=== PATIENT | female | born 1985 | race Caucasian/White ===

== ENCOUNTER 2016-07-25 11:14 | Emergency (ER) | payer SELFPAY ==
--- NOTE | 2016-07-25 11:31 | CPEKG ---
Heart Rate: 67 RR Interval: 896 P-R Interval: 144 QRSD Interval: 82 QT Interval: 404 QTC Interval: 427 P [place]: 47 QRS [place]: 5 T Wave [place]: 49 EKG Severity - NORMAL ECG - EKG Impression: SINUS RHYTHM Electronically Signed By: Kirby Arzate 26-Jul-2016 12:10:15
[2016-07-25 11:42] LABS: % IMMATURE GRANULYOCYTES 0.1 % (0.0-1.1); ABSOLUTE IMMATURE GRANULOCYTES 0.01 10^3/uL (0.00-0.10); ADD DIFF? NO; ADD MORPH? NO; ADD SCAN? NO; ATYPICAL LYMPHOCYTE FLAG 30 (0-99); FRAGMENT RBC FLAG 0 (0-99); HEMATOCRIT 44.3 % (38.0-47.0); HEMOGLOBIN 14.9 g/dL (12.6-16.3); LEFT SHIFT FLG 0 (0-99); LIPEMIA HEMOLYSIS FLAG 80 (0-99); MEAN CELL HEMOGLOBIN 28.3 pg (27.9-34.1); MEAN CELL HEMOGLOBIN CONCENTR. 33.6 g/dL (32.4-36.7); MEAN CELL VOLUME 84.1 fL (81.5-99.8); MEAN PLATELET VOLUME 10.3 fL (8.7-11.7); PLATELET CLUMPS FLAG 0 (0-99); PLATELET COUNT 272 10^3/uL (150-400); RED BLOOD CELL COUNT 5.27 10^6/uL (4.18-5.33); RED CELL DISTRIBUTION WIDTH 13.1 % (11.5-15.2)
[2016-07-25 11:47] LABS: ANION GAP 13 mEq/L (8-16); CALCIUM 9.8 mg/dL (8.5-10.4); CARBON DIOXIDE 24 mEq/l (22-31); CHLORIDE 105 mEq/L (97-110); CREATININE 0.7 mg/dL (0.6-1.0); GLOMERULAR FILTRATION RATE > 60; GLUCOSE 72 mg/dL (70-100); POTASSIUM 4.2 mEq/L (3.5-5.2); SODIUM 142 mEq/L (134-144)
--- NOTE | 2016-07-25 11:48 | EDPHY ---
H & P Time Seen by Provider: 07/25/16 11:20 HPI/ROS: CHIEF COMPLAINT: syncope, "black tarry stools" HISTORY OF PRESENT ILLNESS: 31-year-old female presents to the emergency department by ambulance complaining multiple syncopal episodes today. The patient has a history of liver cancer and has had black tarry stools since January when she was diagnosed with liver cancer. She has no metastasis. She is homeless and from [place]. She states that she has been noncompliant with her medications. She has gone through chemotherapy. She states that she was on hospice in [place]. She came to [place] to stay with her aunt, however those plans fell through and now the patient is currently homeless. She states today she has had multiple syncopal episodes. She has chronic pain and is without her medications including Dilaudid. She denies vomiting. Denies . REVIEW OF SYSTEMS: Constitutional: No fever, no chills. Eyes: No double or blurry vision. ENT: No sore throat. Respiratory: No cough, no shortness of breath. Cardiac: No chest pain. Gastrointestinal: Chronic abdominal pain. "Tarry stools" No vomiting, no diarrhea. Genitourinary: No dysuria. Musculoskeletal: No neck or back pain. Skin: No rashes. Neurological: No headache. Past Medical/Surgical History: Substance abuse, cirrhosis, hepatitis-C, diagnosed with primary liver cancer with metastasis January 2016, chronic pain Social History: Homeless from [place] Physical Exam: General Appearance: Alert, no distress. Appears well. Vital signs are stable. Eyes: Pupils equal and round. Extraocular motions are all intact. ENT: Mouth: Mucous membranes moist. Respiratory: No wheezing, rhonchi, or rales, lungs are clear to auscultation. Cardiovascular: Regular rate and rhythm. Gastrointestinal: Abdomen is soft and nontender, no masses, no rebound or guarding, bowel sounds normal. Rectal exam: Performed with nurserena, at bedside. Normal sphincter tone. Normal colored stool. Neurological: Alert and oriented x 3, cranial nerves II through XII grossly intact Skin: Multiple areas of ecchymosis to her upper extremities. There is old scarring and some scabbing noted. No signs of cellulitis, abscess or infection. Warm and dry, no rashes. Musculoskeletal: Nontender to palpate along the cervical, thoracic or lumbar spine. Neck is supple. Extremities: Full range of motion and no peripheral edema. Psychiatric: Patient is oriented X 3, there is no agitation. Constitutional: Initial Vital Signs Temperature (C) 36.8 C 07/25/16 11:39 Heart Rate 78 07/25/16 11:39 Respiratory Rate 16 07/25/16 11:39 Blood Pressure 149/98 H 07/25/16 11:39 O2 Sat (%) 96 07/25/16 11:39 O2 Delivery Mode Room Air Allergies/Adverse Reactions: ketorolac [From Toradol] Allergy (Verified 07/25/16 11:45) meperidine [From Demerol] Allergy (Verified 07/25/16 11:46) ondansetron [From Zofran (as hydrochloride)] Allergy (Verified 07/25/16 11:46) Medical Decision Making ED Course/Re-evaluation: 31-year-old female presents after having multiple syncopal episodes. The patient was placed on a residential real estate agent and had no ectopy. She had normal sinus rhythm throughout her entire stay in the emergency department. Laboratory studies including CBC, chemistry and troponin were all within normal limits. Patient's vital signs remained stable. Rectal exam was performed which revealed normal colored stool and guaiac negative stool. I do not think this patient needs CT imaging of the abdomen and pelvis. I do not think she needs admission to the hospital. She is requesting resources. She thinks that she will likely stay in the [place] area. She was given information by the rn case mgr who also talked with the patient. The patient did tell the nurse that she has continued to use heroin and does not want her to know. Differential Diagnosis: Syncope including but not limited to vasovagal syncope, arrhythmia, dehydration , and blood loss. - Data Points Laboratory Results: Laboratory Results 07/25/16 11:21 07/25/16 11:21 07/25/16 07/25/16 07/25/16 11:30 11:21 11:21 WBC RBC Hgb Hct MCV MCH MCHC RDW Plt Count MPV Neut % (Auto) Lymph % (Auto) [place] % (Auto) Eos % (Auto) Baso % (Auto) Nucleat RBC Rel Count Absolute Neuts (auto) Absolute Lymphs (auto) Absolute Monos (auto) Absolute Eos (auto) Absolute Basos (auto) Absolute Nucleated RBC Immature Gran % Immature Gran # Sodium Potassium Chloride Carbon Dioxide Anion Gap BUN Creatinine Estimated GFR Glucose Calcium Troponin I < 0.012 ng/mL ng/mL (0-0.034) Beta HCG, Qual NEGATIVE Stool Occult Bld Scrn NEGATIVE (NEGATIVE) 07/25/16 07/25/16 11:21 11:21 WBC 7.06 10^3/uL 10^3/uL (3.80-9.50) RBC 5.27 10^6/uL 10^6/uL (4.18-5.33) Hgb 14.9 g/dL g/dL (12.6-16.3) Hct 44.3 % % (38.0-47.0) MCV 84.1 fL fL (81.5-99.8) MCH 28.3 pg pg (27.9-34.1) MCHC 33.6 g/dL g/dL (32.4-36.7) RDW 13.1 % % (11.5-15.2) Plt Count 272 10^3/uL 10^3/uL (150-400) MPV 10.3 fL fL (8.7-11.7) Neut % (Auto) 53.9 % % (39.3-74.2) Lymph % (Auto) 34.4 % % (15.0-45.0) [place] % (Auto) 8.4 % % (4.5-13.0) Eos % (Auto) 2.4 % % (0.6-7.6) Baso % (Auto) 0.8 % % (0.3-1.7) Nucleat RBC Rel Count 0.0 % % (0.0-0.2) Absolute Neuts (auto) 3.80 10^3/uL 10^3/uL (1.70-6.50) Absolute Lymphs (auto) 2.43 10^3/uL 10^3/uL (1.00-3.00) Absolute Monos (auto) 0.59 10^3/uL 10^3/uL (0.30-0.80) Absolute Eos (auto) 0.17 10^3/uL 10^3/uL (0.03-0.40) Absolute Basos (auto) 0.06 10^3/uL 10^3/uL (0.02-0.10) Absolute Nucleated RBC 0.00 10^3/uL 10^3/uL (0-0.01) Immature Gran % 0.1 % % (0.0-1.1) Immature Gran # 0.01 10^3/uL 10^3/uL (0.00-0.10) Sodium 142 mEq/L mEq/L (134-144) Potassium 4.2 mEq/L mEq/L (3.5-5.2) Chloride 105 mEq/L mEq/L (97-110) Carbon Dioxide 24 mEq/l mEq/l (22-31) Anion Gap 13 mEq/L mEq/L (8-16) BUN 11 mg/dL mg/dL (7-23) Creatinine 0.7 mg/dL mg/dL (0.6-1.0) Estimated GFR > 60 Glucose 72 mg/dL mg/dL (70-100) Calcium 9.8 mg/dL mg/dL (8.5-10.4) Troponin I Beta HCG, Qual Stool Occult Bld Scrn Medications Given: Discontinued Medications Promethazine HCl (Phenergan Rectal) 12.5 mg LA EDNOW ONE Stop: 07/25/16 13:01 Last Admin: 07/25/16 13:00 Dose: 12.5 mg Departure - Departure Disposition: Home, Routine, Self-Care Clinical Impression: Substance abuse Syncope Qualifiers: Syncope type: unspecified Qualified Code(s): R55 - Syncope and collapse Condition: Good Instructions: Syncope (ED), Polysubstance Abuse (ED) Additional Instructions: Diet and activity as tolerated. Return to the emergency department if he developed recurring passing out episodes, if you developed bright red blood from your rectum, or if you feel worse in any way. The [facility] has walk-in appointments for the homeless at the following days/locations. No appointment is needed. Sunday 8-10 am @ [facility] 11 AM-1 PM @ [facility] Sunday 8-10:30 AM @ [facility] Sunday 8-10 AM @ [facility] 2-4 PM @ [facility] Sunday 8-10 AM @ [facility] Referrals: [facility],. [Clinic] - As per Instructions [facility] 24 Hours [Outside] - As per Instructions
[2016-07-25 11:49] VITALS: RESP 16
[2016-07-25] MEDS ORDERED: PROMETHAZINE HCL 12.5 MG SUPPR PR ONE ×2 (12:59→13:00)
[2016-07-25 13:15] VITALS: BP 116/76; PULSE 75; TEMP 98.4; O2SAT 98
== END 2016-07-25 13:41 | disposition home or self-care (01) ==
DX: R55 Syncope and collapse (principal); F19.10 Other psychoactive substance abuse, uncomplicated; Z85.05 Personal history of malignant neoplasm of liver